=== PATIENT | male | born 2000 | race Caucasian/White ===

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

== ENCOUNTER 2023-05-08 15:21 | Emergency (ER) | payer OTHER ==
[~2023-05-08] VITALS: Ht 170.2 cm; Wt 91.6 kg
[~2023-05-08 15:21] MED LIST: [UNRECOGNIZED DRUG - CODE] PO
[2023-05-08 15:25] VITALS: BP 141/90; PULSE 101; RESP 20; TEMP 99.8; O2SAT 100
[2023-05-08] MEDS ORDERED: BPM/118S31 PO (15:42)
[2023-05-08 15:54] VITALS: O2SAT 100
[2023-05-08 15:55] VITALS: O2SAT 97
--- NOTE | 2023-05-08 15:55 | NUR ---
Patient discharged with v/s stable. Written and verbal after care instructions given and explained. Patient alert, oriented and verbalized understanding of instructions. Ambulatory with steady gait. All questions addressed prior to discharge. ID band removed. Patient advised to follow up with PMD. Patient educated on indication of medication including possible reaction and side effects. Opportunity to ask questions provided and answered.
== END 2023-05-08 15:55 | disposition home or self-care (01) ==
LOC: MED 15:21
DX: U07.1 COVID-19 (principal); H92.03 Otalgia, bilateral; Z79.899 Other long term (current) drug therapy
CPT/HCPCS: 99283